=== PATIENT | male | born 1955 | race Caucasian/White ===

== ENCOUNTER 2024-12-14 11:43 | Day surgery (SDC) | payer MEDICARE, SELFPAY ==
[2024-12-07 12:32] VITALS: BMI 38.0
[2024-12-14] MEDS: ACETAMINOPHEN 325 MG TABLET 975 MG PO (12:31)
[2024-12-14] MEDS: LACTATED RINGERS 1,000 ML 42 ML IV ×2 (12:32→15:00)
[2024-12-14 12:36] VITALS: BMI 37.2
--- NOTE | 2024-12-14 12:59 | PM.PREOP ---
Pre-operative Note Interval Note History & Physical reviewed/Exam performed by Physician: Yes Changes to H&P: No
[2024-12-14 13:05] VITALS: BP 166/87; PULSE 75; RESP 16; TEMP 36.9; O2SAT 100
--- NOTE | 2024-12-14 13:29 | SUR.OPER ---
Prone on padded OR bed, head in foam head support, gel chest rolls, gel pad under knees, pillow under lower legs, toes free of pressure, arms secured on padded arm boards at <90 degrees abduction. Safety belt at thigh.
[2024-12-14] MEDS: CEFAZOLIN VIAL 3 GM in SODIUM CHLORIDE 0.9% 100 ML IV (14:01)
[2024-12-14] MEDS: BUPIVACAINE 0.25% W/ EPI 30 ML VIAL 60 ML INJ (14:28)
--- NOTE | 2024-12-14 15:32 | PM.OP.1 ---
Operative Date/Time/Diagnoses Date of procedure: 12/14/24 Time of procedure: 14:45 Pre-op diagnosis: Subacute right Achilles tendon rupture, BMI 37 Post-op diagnosis: same Procedure & Clinicians Procedure: 1. Achilles tendon rupture CPT code 83931, right 2. Gastroc recession separate surgery site CPT code 59206 modifier 59 Same procedure as scheduled: Yes Indications: The patient is a 69-year-old male that sustained a full-thickness midsubstance Achilles tendon rupture on the right side proximally a month and a half ago. He initially did not seek care and walked flatfoot prior to presentation and then subside providers eventually an MRI was obtained just a month after his injury and he was referred to orthopedic care. He has a full-thickness right Achilles rupture with the established gap. At this point we discussed treatment to restore length and power is open fixation of the Achilles tendon repair and due to the established gap and subacute rupture he may require gastroc recession or flexor hallucis longus transfer other lengthening to obtain a good repair. The risks and benefits of the procedure have been discussed with the patient and given the opportunity to ask questions. The risks of surgery include but are not limited to infection, malunion, nonunion, persistence of pain, damage to nerves and blood vessels, posttraumatic arthritis, DVT, PE, coardiopulmonary complications and . The patient expressed a thorough understanding of the risks and benefits of surgery and has elected to proceed. Consent was signed. He does not have any contraindications to surgery. He does not smoke diabetes. He does not take any blood thinners. We discussed that I expect that he may require a gastroc recession due to the large established gap Surgeon: Vianca Bustamante Click Yes if Unassisted: Yes Anesthesia Type: General, Peripheral nerve block and Local Operative Notes Findings: Full-thickness Achilles tendon rupture midsubstance about 5 cm above the insertion with 5 cm gap. Very adherent scar bed requiring significant scar excision and mobilization. Even after mobilization there was still proximally 2 cm gap to the distal stump in terminal plantar flexion, therefore decision was made for gastroc recession. Separate incision was made proximally 16 cm above the Achilles insertion on the heel. Gastroc recession allowed additional length to bridge the Achilles gap. Additionally the plantaris was incorporated into the repair. A deep compartment fasciotomy was also made to release tension and to allow blood flow to the area of the repair. Closure Type: primary Prosthetic devices, grafts, tissues, transplants, or devices: Arthrex midsubstance SpeedBridge system with heel swivel locks Estimated Blood Loss (mL): 20 Tourniquet time (min): 41 Procedure in detail: The patient was seen in the preoperative area the site of surgery was marked informed consent confirmed this was the right ankle. Patient was taken to the operating room and general anesthetic was administered. Patient was positioned into the prone position on the operative table bony prominences were well padded. Well-padded thigh tourniquet was applied. And all bony prominences padded. Right lower extremity was prepped and draped in the standard sterile fashion a formal time-out procedure was performed confirming the patient's side and site of surgery administration of appropriate weight based antibiotics. All were in agreement. Implants were in the room and a candidate for. Attention turned to the right lower extremity Esmarch was used for exsanguination the tourniquet raised on the thigh to 250 mmHg. Right leg was examined there was a palpable gap increased dressing dorsiflexion and no plantar flexion with Butler sign all characteristic a full-thickness Achilles tendon rupture. Planned incisions were measured out on the skin and marked at the level of the Achilles tendon rupture proximally 5 cm above the insertion on the heel and extending about 3 cm proximally from this to expose the proximal stump. Additional gastroc recession incision was marked out as a separate incision proximally 16 cm above the Achilles insertion on the heel. The 1st incision for the Achilles rupture was made just medial to the Achilles tendon to stay off of the tendon this was taken down through the skin and to the level of the fascia the fascia was then opened more midline so that it was not directly under the skin incision line. The full-thickness Achilles rupture was encountered. There was copious scar tissue due to the subacute almost chronic nature of the rupture. This was carefully lysed using the deep scalpel blade as well as the tenotomy scissors. The plantaris tendon was intact this was cut and later utilized to incorporate into the repair. The deep fascia was exposed and this was fasciotomy sized to allow fresh blood flow and to take tension off the repair. The distal 2-3 cm of the proximal stump were then exposed and Krackow sutures with 1.3 fiber tapes were made medially and laterally. The malleable retractor was used to free up the proximal stump the even after thorough fraying of the scar tissue and bringing the ankle into terminal plantar flexion there was still about a 2 cm gap to the distal stump therefore decision was made for gastroc recession. A separate incision was made for the gastroc recession this was taken down through the skin subcutaneous tissue. The sural nerve and small saphenous vein were protected and retracted. The fascia was then opened and medial to lateral gastroc recession was completed through the fascia while pulling distal tension on the Achilles stump creating a proximally 2 cm stretch of the Achilles and this allowed bridging of the gap between the Achilles stumps distally. Once this was completed small incisions were made medial and lateral to the Achilles insertion on the heel for the midsubstance anchors and these were drilled and then tapped. Next the banana Passer was used to pass the Krackow sutures from the proximal stump through the distal stump and then out the heel incisions. These were then loaded onto the SwiveLock and placed sequentially into the heel while the ankle was held in plantar flexion tightening these locks secured the tendon ends in contact this was done medially and laterally. Once this was completed a separate 0 Vicryl is used to over-sew the repair. The tourniquet was released. Hemostasis was achieved. The paratenon was closed with 2-0 Vicryl suture. Subcutaneous closure in both of the incisions was completed with 2-0 Vicryl and 4-0 Monocryl and then the skin with 4-0 nylon suture. 30 cc of 0.25% Marcaine with epinephrine was injected for local anesthetic. A dressing was placed with the jump-start dressing as well as Xeroform gauze Webril and a bulky sterile splint with a posterior slab in plantar flexion to take tension off the Achilles. The patient was then awoken from anesthesia and taken to the recovery room in good condition there were no immediate complications from this procedure. Counts were correct. Complications: none Post-operative Condition: stable Disposition: PACU Plan for aftercare: Nonweightbearing or touchdown for balance 2-3 weeks follow up in Orthopedic Clinic in 2-3 weeks for wound check suture removal typically about 3 weeks postop at that time we will go into a boot with heel lifts and start progressive weight-bearing 25% each week in the boot with the Achilles wedges. The Achilles wedges we will be carefully lowered over time with the Achilles tendon protocol under PT guidance. Patient will utilize aspirin 325 mg b.i.d. for DVT prophylaxis x6 weeks. Alternative would be enteric coated baby aspirin
[2024-12-14 15:40] VITALS: BP 145/84; PULSE 73; RESP 14; TEMP 36.6; O2SAT 95
[2024-12-14 15:45] VITALS: BP 162/81; PULSE 74; RESP 14; O2SAT 97
[2024-12-14 15:50] VITALS: BP 158/83; PULSE 73; RESP 14; O2SAT 95
[2024-12-14 16:05] VITALS: BP 172/91; PULSE 83; RESP 16; O2SAT 97
[2024-12-14 16:10] VITALS: BP 178/81; PULSE 80; RESP 14; TEMP 36.1; O2SAT 99
== END 2024-12-14 16:40 | disposition home or self-care (01) ==
PROVIDERS: PCP Family Medicine; Referring Provider Orthopaedic Surgery Foot and Ankle Surgery; Visit Provider Orthopaedic Surgery Foot and Ankle Surgery
PROC: (CPT 27650; principal; 2024-12-14 13:15)
DX: S86.011A Strain of right Achilles tendon, initial encounter (principal); E66.01 Morbid (severe) obesity due to excess calories; Z68.37 Body mass index [BMI] 37.0-37.9, adult
CPT/HCPCS: 27654; J0690; J1100; J2405; J2704; J3010